=== PATIENT | female | born 1980 | race Caucasian/White ===

== ENCOUNTER 2023-11-24 19:20 | Emergency (ER) | payer SELFPAY ==
[~2023-11-24] VITALS: Ht 162.6 cm; Wt 65.8 kg
[2023-11-24 19:50] VITALS: BP 135/48; PULSE 85; RESP 16; TEMP 98; O2SAT 100
== END 2023-11-24 21:07 | disposition home or self-care (01) ==
LOC: MED 19:20
DX: S86.002A Unspecified injury of left Achilles tendon, initial encounter (principal); X58.XXXA Exposure to other specified factors, initial encounter; Y93.89 Activity, other specified; Y92.89 Other specified places as the place of occurrence of the external cause; Y99.8 Other external cause status
CPT/HCPCS: 29515; 73610; 99283